=== PATIENT | male | born 1955 | race African-American/Black ===

== ENCOUNTER 2018-06-01 09:40 | Observation (INO) | payer BC, MEDICAID ==
[2018-06-01] MEDS: SODIUM CHLORIDE 0.9% 1L BAG IV* (10:27)
[2018-06-01 10:48] LABS: ADD MAN DIFF? NO
[2018-06-01 10:51] LABS: WHITE BLOOD COUNT 7.6 10^3/ul (4.8-10.8)
[2018-06-01 10:51] LABS: BASOPHIL # 0.1 10^3/ul (0.0-0.1); BASOPHILS % 0.7 % (0.0-2.0); EOSINOPHILS # 0.1 10^3/ul (0.0-0.5); EOSINOPHILS % 1.7 % (0.0-7.0); HEMATOCRIT 42.4 % (42.0-52.0); HEMOGLOBIN 14.2 g/dl (14.0-18.0); LYMPHOCYTES # 2.6 10^3/ul (0.8-2.9); LYMPHOCYTES % 33.9 % (15.0-51.0); MEAN CORPUSCULAR HEMOGLOBIN 28.1 pg (29.0-33.0); MEAN CORPUSCULAR HGB CONC 33.5 g/dl (32.0-37.0); MEAN CORPUSCULAR VOLUME 83.8 fl (82.0-101.0); MEAN PLATELET VOLUME 12.2 fl (7.4-10.4); MONOCYTE # 0.6 10^3/ul (0.3-0.9); MONOCYTES % 7.8 % (0.0-11.0); NEUTROPHIL # 4.2 10^3/ul (1.6-7.5); NEUTROPHILS % 55.5 % (39.0-77.0); PLATELET COUNT 189 10^3/UL (140-415); RED BLOOD COUNT 5.06 10^6/ul (4.70-6.10)
[2018-06-01] MEDS: morphine 4 MG/ML VIAL IV (11:07)
[2018-06-01] MEDS: ONDANSETRON 4 MG INJ IV ×2 (11:07→12:21)
[2018-06-01] MEDS: SOD CHLORIDE 0.9% 1,000 ML IV ×2 (11:07→11:10)
[2018-06-01 11:08] LABS: ALANINE AMINOTRANSFERASE 29 IU/L (13-69); ALBUMIN 4.5 g/dl (3.3-4.9); ALKALINE PHOSPHATASE 62 IU/L (42-121); AMYLASE 85 U/L (11-123); ANION GAP 12 (8-16); ASPARTATE AMINO TRANSFERASE 43 IU/L (15-46); BILIRUBIN,INDIRECT 0.8 mg/dl (0-1.1); BILIRUBIN,TOTAL 0.8 mg/dl (0.2-1.3); BLOOD UREA NITROGEN 12 mg/dl (7-20); CALCIUM 9.5 mg/dl (8.4-10.2); CARBON DIOXIDE 26 mmol/L (21-31); CHLORIDE 106 mmol/L (97-110); CREATININE 0.96 mg/dl (0.61-1.24); GLUCOSE 104 mg/dl (70-220); LIPASE 35 U/L (23-300); POTASSIUM 3.7 mmol/L (3.5-5.1); SODIUM 140 mmol/L (135-144); TOTAL PROTEIN 7.7 g/dl (6.1-8.1)
[2018-06-01 11:20] LABS: TROPONIN-I 0.032 ng/ml (0.000-0.120)
[2018-06-01 11:40] LABS: INR 1.03; PROTIME 13.6 Sec (11.9-14.9); PT RATIO 1.1
[2018-06-01 11:41] LABS: PARTIAL THROMBOPLASTIN TIME 27.9 Sec (25.0-35.0)
[2018-06-01] MEDS ORDERED: NITROGLYCERIN (SL) 0.4 MG TAB SL (12:00)
[2018-06-01] MEDS: ASPIRIN 325 MG TAB PO (12:19)
[2018-06-01] MEDS: HYDROmorphONE 1 MG/ML SYG IV (12:22)
[2018-06-01] MEDS: IODIXANOL LOCM 100 ML BTL (13:19)
[2018-06-01] MEDS: SOD CHLORIDE 0.9% 100 ML (13:19)
[2018-06-01] MEDS ORDERED: ACETAMINOPHEN 325 MG TAB PO (13:30)
[2018-06-01] MEDS ORDERED: ONDANSETRON 4 MG INJ IV (13:30)
[2018-06-01] MEDS ORDERED: GLUCOSE GEL 15 GRAM TUBE BUCCAL (13:30)
[2018-06-01] MEDS ORDERED: NACL 0.9% 3 ML SYG IV (13:30)
[2018-06-01] MEDS ORDERED: GLUCAGON 1 MG INJ IM (13:30)
[2018-06-01] MEDS ORDERED: GLUCOSE GEL 15 GRAM TUBE PO ×2 (13:30)
[2018-06-01] MEDS ORDERED: DEXTROSE 50% 50 ML SYRINGE IV ×2 (13:30)
[2018-06-01 14:04] LABS: HEMOGLOBIN A1C 6.2 % (0-5.9)
[2018-06-01 14:21] LABS: CREATINE KINASE 439 IU/L (23-200)
[2018-06-01 14:44] LABS: HDL CHOLESTEROL 39 mg/dl (30-78); LDL CHOLESTEROL,CALCULATED 93 mg/dl; TRIGLYCERIDES 137 mg/dl (0-149)
[2018-06-01 14:44] LABS: CHOLESTEROL 159 mg/dl (100-200)
[2018-06-01] MEDS: HYDROCHLOROTHIAZIDE 25 MG TAB PO (17:16)
[2018-06-01] MEDS: LISINOPRIL 20 MG TAB PO (17:16)
[2018-06-01] MEDS: metFORMIN 500 MG TAB PO (18:31)
[2018-06-01] MEDS: AMLODIPINE 5 MG TAB PO (18:57)
[2018-06-01 19:31] LABS: CREATINE KINASE 300 IU/L (23-200)
[2018-06-01 19:44] LABS: CK INDEX 0.9; CK-MB 2.69 ng/ml (0.0-2.4); TROPONIN-I 0.033 ng/ml (0.000-0.120)
[2018-06-01] MEDS: HYDROCODONE/APAP (5/325) TAB PO (21:00)
[2018-06-02] MEDS: HYDROCODONE/APAP (5/325) TAB PO ×2 (02:49→08:45)
[2018-06-02] MEDS ORDERED: VANCOMYCIN IV PER PHARMACY XX (05:30)
[2018-06-02 06:24] LABS: ADD MAN DIFF? NO
[2018-06-02 06:41] LABS: BASOPHIL # 0.1 10^3/ul (0.0-0.1); BASOPHILS % 0.7 % (0.0-2.0); EOSINOPHILS # 0.1 10^3/ul (0.0-0.5); EOSINOPHILS % 1.1 % (0.0-7.0); HEMATOCRIT 45.7 % (42.0-52.0); HEMOGLOBIN 15.1 g/dl (14.0-18.0); LYMPHOCYTES # 2.3 10^3/ul (0.8-2.9); LYMPHOCYTES % 25.5 % (15.0-51.0); MEAN CORPUSCULAR HEMOGLOBIN 27.9 pg (29.0-33.0); MEAN CORPUSCULAR VOLUME 84.5 fl (82.0-101.0); MEAN PLATELET VOLUME 11.9 fl (7.4-10.4); MONOCYTE # 0.8 10^3/ul (0.3-0.9); NEUTROPHIL # 5.8 10^3/ul (1.6-7.5); NEUTROPHILS % 63.3 % (39.0-77.0); PLATELET COUNT 175 10^3/UL (140-415); RED BLOOD COUNT 5.41 10^6/ul (4.70-6.10); RED CELL DISTRIBUTION WIDTH 12.8 % (11.5-14.5)
[2018-06-02 06:41] LABS: WHITE BLOOD COUNT 9.1 10^3/ul (4.8-10.8)
[2018-06-02 06:54] LABS: ALANINE AMINOTRANSFERASE 33 IU/L (13-69); ALBUMIN 4.5 g/dl (3.3-4.9); ALBUMIN/GLOBULIN RATIO 1.36; ALKALINE PHOSPHATASE 62 IU/L (42-121); ANION GAP 12 (8-16); ASPARTATE AMINO TRANSFERASE 32 IU/L (15-46); BLOOD UREA NITROGEN 13 mg/dl (7-20); CALCIUM 9.7 mg/dl (8.4-10.2); CARBON DIOXIDE 32 mmol/L (21-31); CHLORIDE 100 mmol/L (97-110); CREATININE 1.06 mg/dl (0.61-1.24); GLUCOSE 123 mg/dl (70-220); POTASSIUM 3.5 mmol/L (3.5-5.1); SODIUM 140 mmol/L (135-144); TOTAL PROTEIN 7.8 g/dl (6.1-8.1)
[2018-06-02] MEDS: VANCOMYCIN 2 GM in SOD CHLORIDE 0.9% 500 ML IVPB (07:06)
[2018-06-02] MEDS: metFORMIN 500 MG TAB PO ×2 (08:44→17:54)
[2018-06-02] MEDS: HYDROCHLOROTHIAZIDE 25 MG TAB PO (08:45)
[2018-06-02] MEDS: LISINOPRIL 20 MG TAB PO (08:45)
[2018-06-02] MEDS: AMLODIPINE 5 MG TAB PO (08:45)
[2018-06-02] MEDS: ENOXAPARIN 30 MG/0.3 ML SYG SC (08:51)
[2018-06-02] MEDS: ASPIRIN 81 MG TAB PO (15:44)
[2018-06-02] MEDS ORDERED: VANCOMYCIN 1.5 GM in SOD CHLORIDE 0.9% 250 ML IVPB (18:30)
[2018-06-02] MEDS: ATORVASTATIN 40 MG TAB PO (20:29)
[2018-06-02] MEDS: VANCOMYCIN 1 GM 250 ML IVPB (20:33)
[2018-06-03] MEDS: metFORMIN 500 MG TAB PO ×2 (08:47→17:08)
[2018-06-03] MEDS: ASPIRIN 81 MG TAB PO (08:50)
[2018-06-03] MEDS: AMLODIPINE 5 MG TAB PO (08:51)
[2018-06-03] MEDS: HYDROCHLOROTHIAZIDE 25 MG TAB PO (08:51)
[2018-06-03] MEDS: LISINOPRIL 20 MG TAB PO (08:54)
[2018-06-03] MEDS: VANCOMYCIN 1 GM 250 ML IVPB (08:55)
[2018-06-03] MEDS: ENOXAPARIN 30 MG/0.3 ML SYG SC (10:00)
== END 2018-06-03 19:00 | disposition home or self-care (01) ==
LOC: 6WM 17:46 → E/R 09:40 → 6WM 13:05
PROVIDERS: Internal Medicine
DX: R07.9 Chest pain, unspecified (principal); I10 Essential (primary) hypertension; E11.9 Type 2 diabetes mellitus without complications; R51 Headache; Z72.0 Tobacco use
CPT/HCPCS: 70450; 70496; 71045; 80053; 80061; 82150; 82550; 82553; 82962; 83036; 83605; 83690; 84484; 85025; 85610; 85730; 87040; 87086; 93005; 93306; 96374; 96375; 96376; 99285-25; G0378

== ENCOUNTER 2018-07-12 11:42 | Inpatient (IN) | payer BC, MEDICAID ==
[2018-07-12] MEDS: PANTOPRAZOLE 40 MG INJ IV (12:41)
[2018-07-12] MEDS: morphine 4 MG/ML VIAL IV (12:42)
[2018-07-12] MEDS: ONDANSETRON 4 MG INJ IV (12:42)
[2018-07-12 12:55] LABS: ADD MAN DIFF? NO
[2018-07-12 12:59] LABS: WHITE BLOOD COUNT 7.5 10^3/ul (4.8-10.8)
[2018-07-12 12:59] LABS: BASOPHILS % 0.5 % (0.0-2.0); EOSINOPHILS # 0.3 10^3/ul (0.0-0.5); EOSINOPHILS % 3.6 % (0.0-7.0); HEMATOCRIT 38.8 % (42.0-52.0); HEMOGLOBIN 12.8 g/dl (14.0-18.0); LYMPHOCYTES # 2.2 10^3/ul (0.8-2.9); MEAN CORPUSCULAR HEMOGLOBIN 27.9 pg (29.0-33.0); MEAN CORPUSCULAR VOLUME 84.7 fl (82.0-101.0); MEAN PLATELET VOLUME 11.9 fl (7.4-10.4); MONOCYTE # 0.5 10^3/ul (0.3-0.9); MONOCYTES % 6.4 % (0.0-11.0); NEUTROPHIL # 4.5 10^3/ul (1.6-7.5); PLATELET COUNT 141 10^3/UL (140-415); RED BLOOD COUNT 4.58 10^6/ul (4.70-6.10); RED CELL DISTRIBUTION WIDTH 13.2 % (11.5-14.5)
[2018-07-12 13:16] LABS: ALANINE AMINOTRANSFERASE 41 IU/L (13-69); ALBUMIN/GLOBULIN RATIO 1.48; ALKALINE PHOSPHATASE 69 IU/L (42-121); ANION GAP 10 (8-16); ASPARTATE AMINO TRANSFERASE 36 IU/L (15-46); BILIRUBIN,INDIRECT 0.3 mg/dl (0-1.1); BILIRUBIN,TOTAL 0.3 mg/dl (0.2-1.3); BLOOD UREA NITROGEN 19 mg/dl (7-20); CALCIUM 9.4 mg/dl (8.4-10.2); CARBON DIOXIDE 28 mmol/L (21-31); CHLORIDE 106 mmol/L (97-110); CREATININE 0.92 mg/dl (0.61-1.24); GLUCOSE 174 mg/dl (70-220); POTASSIUM 4.2 mmol/L (3.5-5.1); SODIUM 140 mmol/L (135-144); TOTAL PROTEIN 6.7 g/dl (6.1-8.1)
[2018-07-12 13:18] LABS: PROTIME 13.3 Sec (11.9-14.9)
[2018-07-12 13:19] LABS: PARTIAL THROMBOPLASTIN TIME 27.7 Sec (25.0-35.0)
[2018-07-12 13:28] LABS: TROPONIN-I < 0.012 ng/ml (0.000-0.120)
[2018-07-12] MEDS ORDERED: ACETAMINOPHEN 325 MG TAB PO ×2 (14:30→15:00)
[2018-07-12] MEDS ORDERED: ONDANSETRON 4 MG INJ IV ×2 (14:30→15:00)
[2018-07-12] MEDS ORDERED: HYDROCODONE/APAP (5/325) TAB PO (15:00)
[2018-07-12] MEDS ORDERED: ZOLPIDEM 5 MG TAB PO (15:00)
[2018-07-12] MEDS ORDERED: morphine 2 MG INJ IV (15:00)
[2018-07-12 15:26] LABS: PROSTATE SPECIFIC ANTIGEN 3.7 ng/ml (0.0-4.0)
[2018-07-12] MEDS ORDERED: DEXTROSE 50% 50 ML SYRINGE IV ×2 (15:30)
[2018-07-12] MEDS ORDERED: GLUCOSE GEL 15 GRAM TUBE BUCCAL (15:30)
[2018-07-12] MEDS ORDERED: GLUCAGON 1 MG INJ IM (15:30)
[2018-07-12] MEDS ORDERED: GLUCOSE GEL 15 GRAM TUBE PO ×2 (15:30)
[2018-07-12] MEDS: DOCUSATE SODIUM 100 MG CAP PO ×2 (16:15→20:45)
[2018-07-12] MEDS: BISACODYL (EC) 5 MG TAB PO (16:15)
[2018-07-12] MEDS: SOD CHLORIDE 0.9% 1,000 ML IV (16:16)
[2018-07-12] MEDS: INSULIN ASPART [NOVOLOG] 3 ML PEN SC ×2 (18:00→20:45)
[2018-07-12] MEDS: MAGNESIUM CITRATE 300 ML BTL PO (18:04)
[2018-07-12] MEDS: POLYETHYLENE GLYCOL 3350 119 GM POWDER PO (18:24)
[2018-07-12] MEDS: ACCU-CHEK XX (20:08)
[2018-07-12] MEDS: ATORVASTATIN 40 MG TAB PO (20:45)
[2018-07-13] MEDS: ACCU-CHEK XX ×3 (01:03→14:00)
[2018-07-13] MEDS: SOD CHLORIDE 0.9% 1,000 ML IV ×2 (03:33→16:22)
[2018-07-13] MEDS: PANTOPRAZOLE 40 MG INJ IV (05:27)
[2018-07-13] MEDS: POLYETHYLENE GLYCOL 3350 119 GM POWDER PO (06:02)
[2018-07-13] MEDS ORDERED: PROPOFOL 200 MG INJ (07:00)
[2018-07-13 07:05] LABS: ADD MAN DIFF? NO
[2018-07-13 07:14] LABS: BASOPHIL # 0.1 10^3/ul (0.0-0.1); BASOPHILS % 0.7 % (0.0-2.0); EOSINOPHILS # 0.3 10^3/ul (0.0-0.5); EOSINOPHILS % 3.6 % (0.0-7.0); HEMATOCRIT 38.9 % (42.0-52.0); HEMOGLOBIN 12.8 g/dl (14.0-18.0); LYMPHOCYTES # 2.3 10^3/ul (0.8-2.9); LYMPHOCYTES % 32.2 % (15.0-51.0); MEAN CORPUSCULAR HEMOGLOBIN 28.1 pg (29.0-33.0); MEAN CORPUSCULAR HGB CONC 32.9 g/dl (32.0-37.0); MEAN CORPUSCULAR VOLUME 85.5 fl (82.0-101.0); MEAN PLATELET VOLUME 12.4 fl (7.4-10.4); MONOCYTE # 0.5 10^3/ul (0.3-0.9); MONOCYTES % 7.5 % (0.0-11.0); NEUTROPHILS % 55.6 % (39.0-77.0); PLATELET COUNT 145 10^3/UL (140-415); RED BLOOD COUNT 4.55 10^6/ul (4.70-6.10); RED CELL DISTRIBUTION WIDTH 13.2 % (11.5-14.5)
[2018-07-13 07:14] LABS: WHITE BLOOD COUNT 7.2 10^3/ul (4.8-10.8)
[2018-07-13 07:50] LABS: ANION GAP 10 (8-16); BLOOD UREA NITROGEN 15 mg/dl (7-20); CALCIUM 9.2 mg/dl (8.4-10.2); CARBON DIOXIDE 30 mmol/L (21-31); CHLORIDE 105 mmol/L (97-110); CREATININE 0.94 mg/dl (0.61-1.24); GLUCOSE 108 mg/dl (70-220); POTASSIUM 3.8 mmol/L (3.5-5.1); SODIUM 141 mmol/L (135-144)
[2018-07-13] MEDS: INSULIN ASPART [NOVOLOG] 3 ML PEN SC ×3 (08:00→17:52)
[2018-07-13] MEDS: BISACODYL (EC) 5 MG TAB PO (08:03)
[2018-07-13] MEDS: LISINOPRIL 20 MG TAB PO (08:04)
[2018-07-13] MEDS: DOCUSATE SODIUM 100 MG CAP PO (08:04)
[2018-07-13] MEDS: AMLODIPINE 5 MG TAB PO (08:04)
[2018-07-13 08:16] LABS: MAGNESIUM 2.2 mg/dl (1.7-2.5)
[2018-07-13] MEDS: TRIAMTERENE/HCTZ (37.5/25) TAB PO (09:00)
[2018-07-13] MEDS ORDERED: PROPOFOL 60 ML (12:59)
[2018-07-13] MEDS ORDERED: LIDOCAINE 2% (SDV) 5 ML INJ (13:00)
[2018-07-13] MEDS ORDERED: morphine LIQ (10 MG/5 ML) CUP PO (18:30)
[2018-07-14] MEDS ORDERED: ACCU-CHEK XX (02:00)
== END 2018-07-13 20:25 | disposition home or self-care (01) | DRG 395 ==
LOC: E/R 11:42 → 2NE 14:17
PROC: 0DJD8ZZ Inspection of Lower Intestinal Tract, Via Natural or Artificial Opening Endoscopic (ICD-10-PCS; principal; 2018-07-13 12:30)
DX: K64.8 Other hemorrhoids (principal); I10 Essential (primary) hypertension; E11.9 Type 2 diabetes mellitus without complications; Z88.0 Allergy status to penicillin; Z87.891 Personal history of nicotine dependence; D64.9 Anemia, unspecified; M51.36 Other intervertebral disc degeneration, lumbar region; G89.29 Other chronic pain; E78.5 Hyperlipidemia, unspecified; N40.0 Benign prostatic hyperplasia without lower urinary tract symptoms; E66.9 Obesity, unspecified; Z68.34 Body mass index [BMI] 34.0-34.9, adult
CPT/HCPCS: 74176; 80048; 80053; 82962; 83735; 84100; 84153; 84154; 84484; 85025; 85610; 85730; 86850; 86900; 86901; 93005; 96374; 96375; 99285-25

== ENCOUNTER 2019-03-13 23:30 | Inpatient (IN) | payer MEDICAID, BC, OTHER ==
[2019-03-14] MEDS: SOD CHLORIDE 0.9% 500 ML IV (00:25)
[2019-03-14 00:52] LABS: ADD MAN DIFF? NO
[2019-03-14 00:59] LABS: WHITE BLOOD COUNT 10.3 10^3/ul (4.8-10.8)
[2019-03-14 00:59] LABS: BASOPHIL # 0.1 10^3/ul (0.0-0.1); BASOPHILS % 0.5 % (0.0-2.0); EOSINOPHILS # 0.2 10^3/ul (0.0-0.5); EOSINOPHILS % 1.5 % (0.0-7.0); HEMOGLOBIN 12.8 g/dl (14.0-18.0); LYMPHOCYTES # 2.6 10^3/ul (0.8-2.9); MEAN CORPUSCULAR HEMOGLOBIN 27.8 pg (29.0-33.0); MEAN CORPUSCULAR HGB CONC 32.8 g/dl (32.0-37.0); MEAN CORPUSCULAR VOLUME 84.8 fl (82.0-101.0); MEAN PLATELET VOLUME 12.5 fl (7.4-10.4); NEUTROPHIL # 6.4 10^3/ul (1.6-7.5); NEUTROPHILS % 62.5 % (39.0-77.0); PLATELET COUNT 132 10^3/UL (140-415); RED CELL DISTRIBUTION WIDTH 13.5 % (11.5-14.5)
[2019-03-14 01:18] LABS: INR 1.06; PROTIME 13.9 Sec (11.9-14.9); PT RATIO 1.1
[2019-03-14 01:19] LABS: PARTIAL THROMBOPLASTIN TIME 28.4 Sec (23.0-35.0)
[2019-03-14 01:22] LABS: ALANINE AMINOTRANSFERASE 34 IU/L (13-69); ALBUMIN 3.9 g/dl (3.3-4.9); ALBUMIN/GLOBULIN RATIO 1.44; ALKALINE PHOSPHATASE 63 IU/L (42-121); ANION GAP 7 (5-13); ASPARTATE AMINO TRANSFERASE 34 IU/L (15-46); BILIRUBIN,INDIRECT 0.7 mg/dl (0-1.1); BILIRUBIN,TOTAL 0.7 mg/dl (0.2-1.3); BLOOD UREA NITROGEN 21 mg/dl (7-20); CALCIUM 9.1 mg/dl (8.4-10.2); CARBON DIOXIDE 28 mmol/L (21-31); CHLORIDE 103 mmol/L (97-110); CREATININE 1.04 mg/dl (0.61-1.24); Estimated GFR > 60 mL/min (>60); GLUCOSE 163 mg/dl (70-220); POTASSIUM 3.5 mmol/L (3.5-5.1); SODIUM 138 mmol/L (135-144); TOTAL PROTEIN 6.6 g/dl (6.1-8.1)
[2019-03-14 01:32] LABS: B-TYPE NATRIURETIC PEPTIDE 355 PG/ML (0-125)
[2019-03-14 01:40] LABS: TROPONIN-I 0.037 ng/ml (0.000-0.120)
[2019-03-14] MEDS: ALBUTEROL 0.083% (NEB) 2.5 MG/3 ML AMP NEB (01:47)
[2019-03-14] MEDS: IPRATROPIUM (NEB) 0.5 MG/2.5 ML AMP NEB (01:47)
[2019-03-14 01:48] LABS: ADD UMIC YES; UR ASCORBIC ACID NEGATIVE (NEGATIVE); UR BACTERIA FEW /HPF (NONE SEEN); UR BILIRUBIN (Dip) NEGATIVE (NEGATIVE); UR BLOOD (Dip) 1+ mg/dL (NEGATIVE); UR CLARITY CLEAR (CLEAR); UR COLOR YELLOW (YELLOW); UR GLUCOSE (Dip) 1+ mg/dL (NEGATIVE); UR KETONES (Dip) NEGATIVE (NEGATIVE); UR LEUKOCYTE ESTERASE (Dip) NEGATIVE Leu/ul (NEGATIVE); UR NITRITE (Dip) NEGATIVE (NEGATIVE); UR RBC 1 /HPF (0-5); UR SPECIFIC GRAVITY (Dip) 1.015 (1.003-1.030); UR TOTAL PROTEIN (Dip) NEGATIVE (NEGATIVE); UR UROBILINOGEN (Dip) NEGATIVE (NEGATIVE); UR WBC 1 /HPF (0-5)
[2019-03-14] MEDS: KETOROLAC 15 MG INJ IV (01:52)
[2019-03-14] MEDS ORDERED: ONDANSETRON 4 MG INJ IV (06:00)
[2019-03-14] MEDS ORDERED: ALBUTEROL/IPRATROPIUM (NEB) 3 ML AMP HHN (06:00)
[2019-03-14] MEDS ORDERED: NACL 0.9% 3 ML SYG IV (06:00)
[2019-03-14] MEDS ORDERED: NITROGLYCERIN (SL) 0.4 MG TAB SL (06:00)
[2019-03-14 06:15] LABS: LACTIC ACID 1.1 mmol/L (0.5-2.0)
[2019-03-14] MEDS ORDERED: GLUCOSE GEL 15 GRAM TUBE BUCCAL (06:30)
[2019-03-14] MEDS ORDERED: DEXTROSE 50% 50 ML SYRINGE IV ×2 (06:30)
[2019-03-14] MEDS ORDERED: GLUCAGON 1 MG INJ IM (06:30)
[2019-03-14] MEDS ORDERED: GLUCOSE GEL 15 GRAM TUBE PO ×2 (06:30)
[2019-03-14] MEDS: ACCU-CHEK XX ×4 (07:57→21:00)
[2019-03-14] MEDS: metFORMIN 500 MG TAB PO ×2 (07:58→17:15)
[2019-03-14 08:02] LABS: LACTIC ACID 1.5 mmol/L (0.5-2.0)
[2019-03-14 08:11] LABS: CREATINE KINASE 334 IU/L (23-200)
[2019-03-14] MEDS: TRIAMTERENE/HCTZ (37.5/25) TAB PO (08:12)
[2019-03-14] MEDS: ASPIRIN 81 MG TAB PO (08:12)
[2019-03-14] MEDS: AMLODIPINE 5 MG TAB PO (08:12)
[2019-03-14] MEDS: LISINOPRIL 20 MG TAB PO (08:13)
[2019-03-14] MEDS: POLYETHYLENE GLYCOL 17 GM PACKET PO (08:13)
[2019-03-14] MEDS: ENOXAPARIN 40 MG/0.4 ML SYG SC (08:18)
[2019-03-14 08:23] LABS: CK INDEX 0.8; TROPONIN-I 0.054 ng/ml (0.000-0.120)
[2019-03-14 09:10] LABS: HAAIG REFLEX REFLEX FILED
[2019-03-14 10:09] LABS: HEPATITIS B SURFACE ANTIGEN NEGATIVE (NEGATIVE)
[2019-03-14 10:26] LABS: HEPATITIS B CORE ANTIBODY REACTIVE (NEGATIVE); HEPATITIS C VIRAL ANTIBODY NEGATIVE (NEGATIVE); HIV 1&2 ANTIBODY NEGATIVE (NEGATIVE)
[2019-03-14] MEDS: ACETAMINOPHEN 325 MG TAB PO ×2 (12:35→20:07)
[2019-03-14 13:40] LABS: CREATINE KINASE 349 IU/L (23-200)
[2019-03-14 13:49] LABS: TROPONIN-I 0.046 ng/ml (0.000-0.120)
[2019-03-14 13:54] LABS: CK-MB 3.38 ng/ml (0.0-2.4)
[2019-03-14] MEDS: hydrALAzine 20 MG INJ IV (15:56)
[2019-03-14 16:38] LABS: LIPASE 75 U/L (23-300)
[2019-03-14] MEDS: TAMSULOSIN (SR) 0.4 MG CAP PO (21:00)
[2019-03-14] MEDS: ATORVASTATIN 40 MG TAB PO (21:00)
[2019-03-14] MEDS: MAGNESIUM HYDROXIDE 30ML CUP PO (21:00)
[2019-03-15] MEDS: ACETAMINOPHEN 325 MG TAB PO ×3 (04:15→22:27)
[2019-03-15] MEDS: PANTOPRAZOLE (EC) 40 MG TAB PO (05:56)
[2019-03-15 06:14] LABS: ADD MAN DIFF? NO
[2019-03-15 06:19] LABS: WHITE BLOOD COUNT 9.6 10^3/ul (4.8-10.8)
[2019-03-15 06:19] LABS: BASOPHIL # 0.1 10^3/ul (0.0-0.1); BASOPHILS % 0.6 % (0.0-2.0); EOSINOPHILS # 0.2 10^3/ul (0.0-0.5); EOSINOPHILS % 2.2 % (0.0-7.0); HEMATOCRIT 42.7 % (42.0-52.0); HEMOGLOBIN 14.3 g/dl (14.0-18.0); LYMPHOCYTES # 2.7 10^3/ul (0.8-2.9); LYMPHOCYTES % 27.8 % (15.0-51.0); MEAN CORPUSCULAR HEMOGLOBIN 27.9 pg (29.0-33.0); MEAN CORPUSCULAR HGB CONC 33.5 g/dl (32.0-37.0); MEAN CORPUSCULAR VOLUME 83.2 fl (82.0-101.0); MEAN PLATELET VOLUME 12.6 fl (7.4-10.4); MONOCYTE # 0.7 10^3/ul (0.3-0.9); MONOCYTES % 7.3 % (0.0-11.0); NEUTROPHIL # 5.9 10^3/ul (1.6-7.5); NEUTROPHILS % 61.7 % (39.0-77.0); PLATELET COUNT 148 10^3/UL (140-415); RED BLOOD COUNT 5.13 10^6/ul (4.70-6.10); RED CELL DISTRIBUTION WIDTH 13.1 % (11.5-14.5)
[2019-03-15 06:55] LABS: ANION GAP 9 (5-13); BLOOD UREA NITROGEN 15 mg/dl (7-20); CALCIUM 9.6 mg/dl (8.4-10.2); CARBON DIOXIDE 25 mmol/L (21-31); CHLORIDE 105 mmol/L (97-110); CREATININE 0.88 mg/dl (0.61-1.24); Estimated GFR > 60 mL/min (>60); GLUCOSE 193 mg/dl (70-220); PHOSPHORUS 3.5 mg/dl (2.5-4.9); POTASSIUM 3.8 mmol/L (3.5-5.1); SODIUM 139 mmol/L (135-144)
[2019-03-15 07:07] LABS: ALANINE AMINOTRANSFERASE 39 IU/L (13-69); ALBUMIN 4.1 g/dl (3.3-4.9); ALBUMIN/GLOBULIN RATIO 1.36; ALKALINE PHOSPHATASE 58 IU/L (42-121); ANION GAP 8 (5-13); ASPARTATE AMINO TRANSFERASE 34 IU/L (15-46); BLOOD UREA NITROGEN 15 mg/dl (7-20); CALCIUM 9.8 mg/dl (8.4-10.2); CARBON DIOXIDE 24 mmol/L (21-31); CHLORIDE 105 mmol/L (97-110); CHOLESTEROL 108 mg/dl (100-200); CREATININE 1.03 mg/dl (0.61-1.24); Estimated GFR > 60 mL/min (>60); GLUCOSE 201 mg/dl (70-220); HDL CHOLESTEROL 36 mg/dl (30-78); LDL CHOLESTEROL,CALCULATED 47 mg/dl; MAGNESIUM 2.1 mg/dl (1.7-2.5); POTASSIUM 3.6 mmol/L (3.5-5.1); SODIUM 137 mmol/L (135-144); TOTAL PROTEIN 7.1 g/dl (6.1-8.1); TRIGLYCERIDES 123 mg/dl (0-149)
[2019-03-15] MEDS: ACCU-CHEK XX ×4 (07:54→20:52)
[2019-03-15] MEDS: TRIAMTERENE/HCTZ (37.5/25) TAB PO (08:08)
[2019-03-15] MEDS: metFORMIN 500 MG TAB PO ×2 (08:08→17:51)
[2019-03-15] MEDS: POLYETHYLENE GLYCOL 17 GM PACKET PO (08:09)
[2019-03-15] MEDS: LISINOPRIL 20 MG TAB PO (08:09)
[2019-03-15] MEDS: AMLODIPINE 5 MG TAB PO (08:09)
[2019-03-15] MEDS: TAMSULOSIN (SR) 0.4 MG CAP PO (20:51)
[2019-03-15] MEDS: ATORVASTATIN 40 MG TAB PO (20:51)
[2019-03-15] MEDS: METOPROLOL 25 MG TAB PO (20:52)
[2019-03-16 05:38] LABS: ADD MAN DIFF? NO
[2019-03-16 05:44] LABS: WHITE BLOOD COUNT 10.6 10^3/ul (4.8-10.8)
[2019-03-16 05:44] LABS: BASOPHIL # 0.1 10^3/ul (0.0-0.1); BASOPHILS % 0.7 % (0.0-2.0); EOSINOPHILS # 0.3 10^3/ul (0.0-0.5); EOSINOPHILS % 2.6 % (0.0-7.0); HEMATOCRIT 43.1 % (42.0-52.0); HEMOGLOBIN 14.4 g/dl (14.0-18.0); LYMPHOCYTES # 2.9 10^3/ul (0.8-2.9); MEAN CORPUSCULAR HEMOGLOBIN 27.5 pg (29.0-33.0); MEAN CORPUSCULAR HGB CONC 33.4 g/dl (32.0-37.0); MEAN CORPUSCULAR VOLUME 82.3 fl (82.0-101.0); MEAN PLATELET VOLUME 12.7 fl (7.4-10.4); MONOCYTE # 0.8 10^3/ul (0.3-0.9); MONOCYTES % 7.9 % (0.0-11.0); NEUTROPHIL # 6.5 10^3/ul (1.6-7.5); NEUTROPHILS % 61.3 % (39.0-77.0); PLATELET COUNT 162 10^3/UL (140-415); RED BLOOD COUNT 5.24 10^6/ul (4.70-6.10); RED CELL DISTRIBUTION WIDTH 13.5 % (11.5-14.5)
[2019-03-16 06:15] LABS: ANION GAP 9 (5-13); BLOOD UREA NITROGEN 16 mg/dl (7-20); CALCIUM 9.4 mg/dl (8.4-10.2); CARBON DIOXIDE 26 mmol/L (21-31); CHLORIDE 103 mmol/L (97-110); CREATININE 0.96 mg/dl (0.61-1.24); Estimated GFR > 60 mL/min (>60); GLUCOSE 134 mg/dl (70-220); MAGNESIUM 2.1 mg/dl (1.7-2.5); PHOSPHORUS 3.9 mg/dl (2.5-4.9); POTASSIUM 3.8 mmol/L (3.5-5.1); SODIUM 138 mmol/L (135-144)
[2019-03-16] MEDS: PANTOPRAZOLE (EC) 40 MG TAB PO (06:21)
[2019-03-16] MEDS: ACCU-CHEK XX ×4 (07:55→21:50)
[2019-03-16] MEDS: metFORMIN 500 MG TAB PO ×2 (08:15→17:56)
[2019-03-16] MEDS: ACETAMINOPHEN 325 MG TAB PO ×2 (08:37→18:30)
[2019-03-16] MEDS: LISINOPRIL 20 MG TAB PO (08:38)
[2019-03-16] MEDS: AMLODIPINE 5 MG TAB PO (08:39)
[2019-03-16] MEDS: METOPROLOL 25 MG TAB PO ×2 (08:39→21:47)
[2019-03-16] MEDS: POLYETHYLENE GLYCOL 17 GM PACKET PO (09:37)
[2019-03-16] MEDS: TRIAMTERENE/HCTZ (37.5/25) TAB PO (09:37)
[2019-03-16] MEDS: REGADENOSON 0.4 MG/5 ML SYG (11:10)
[2019-03-16] MEDS ORDERED: VANCOMYCIN IV PER PHARMACY XX (11:30)
[2019-03-16] MEDS: VANCOMYCIN HCL 2 GM in SOD CHLORIDE 0.9% 500 ML IVPB (13:45)
[2019-03-16] MEDS: TAMSULOSIN (SR) 0.4 MG CAP PO (21:46)
[2019-03-16] MEDS: ATORVASTATIN 40 MG TAB PO (21:46)
[2019-03-16] MEDS: VANCOMYCIN HCL 1.25 GM in SOD CHLORIDE 0.9% 250 ML IVPB (23:55)
[2019-03-17 06:07] LABS: ADD MAN DIFF? NO
[2019-03-17 06:10] LABS: BASOPHIL # 0.1 10^3/ul (0.0-0.1); BASOPHILS % 0.6 % (0.0-2.0); EOSINOPHILS # 0.3 10^3/ul (0.0-0.5); EOSINOPHILS % 3.1 % (0.0-7.0); HEMATOCRIT 43.7 % (42.0-52.0); HEMOGLOBIN 14.4 g/dl (14.0-18.0); LYMPHOCYTES # 3.1 10^3/ul (0.8-2.9); LYMPHOCYTES % 30.7 % (15.0-51.0); MEAN CORPUSCULAR HEMOGLOBIN 27.3 pg (29.0-33.0); MEAN CORPUSCULAR VOLUME 82.9 fl (82.0-101.0); MEAN PLATELET VOLUME 12.4 fl (7.4-10.4); MONOCYTE # 0.7 10^3/ul (0.3-0.9); MONOCYTES % 7.4 % (0.0-11.0); NEUTROPHIL # 5.8 10^3/ul (1.6-7.5); NEUTROPHILS % 57.8 % (39.0-77.0); PLATELET COUNT 173 10^3/UL (140-415); RED BLOOD COUNT 5.27 10^6/ul (4.70-6.10); RED CELL DISTRIBUTION WIDTH 13.7 % (11.5-14.5)
[2019-03-17] MEDS: PANTOPRAZOLE (EC) 40 MG TAB PO (06:13)
[2019-03-17 06:37] LABS: ANION GAP 8 (5-13); BLOOD UREA NITROGEN 18 mg/dl (7-20); CALCIUM 9.2 mg/dl (8.4-10.2); CARBON DIOXIDE 26 mmol/L (21-31); CHLORIDE 106 mmol/L (97-110); CREATININE 0.92 mg/dl (0.61-1.24); Estimated GFR > 60 mL/min (>60); GLUCOSE 124 mg/dl (70-220); MAGNESIUM 2.1 mg/dl (1.7-2.5); PHOSPHORUS 3.5 mg/dl (2.5-4.9); SODIUM 140 mmol/L (135-144)
[2019-03-17] MEDS: ACCU-CHEK XX ×4 (07:32→20:56)
[2019-03-17] MEDS: metFORMIN 500 MG TAB PO ×2 (07:36→17:22)
[2019-03-17] MEDS: TRIAMTERENE/HCTZ (37.5/25) TAB PO (08:48)
[2019-03-17] MEDS: LISINOPRIL 20 MG TAB PO (08:49)
[2019-03-17] MEDS: AMLODIPINE 5 MG TAB PO (08:49)
[2019-03-17] MEDS: METOPROLOL 25 MG TAB PO ×2 (08:49→20:53)
[2019-03-17] MEDS: POLYETHYLENE GLYCOL 17 GM PACKET PO (08:50)
[2019-03-17] MEDS: VANCOMYCIN HCL 1.25 GM in SOD CHLORIDE 0.9% 250 ML IVPB (11:58)
[2019-03-17] MEDS: ACETAMINOPHEN 325 MG TAB PO (18:23)
[2019-03-17] MEDS: TAMSULOSIN (SR) 0.4 MG CAP PO (20:52)
[2019-03-17] MEDS: ATORVASTATIN 40 MG TAB PO (20:52)
[2019-03-18 05:33] LABS: ADD MAN DIFF? NO
[2019-03-18 05:40] LABS: WHITE BLOOD COUNT 10.2 10^3/ul (4.8-10.8)
[2019-03-18 05:40] LABS: BASOPHIL # 0.1 10^3/ul (0.0-0.1); BASOPHILS % 0.8 % (0.0-2.0); EOSINOPHILS # 0.3 10^3/ul (0.0-0.5); EOSINOPHILS % 2.9 % (0.0-7.0); HEMATOCRIT 41.1 % (42.0-52.0); HEMOGLOBIN 13.5 g/dl (14.0-18.0); LYMPHOCYTES # 2.9 10^3/ul (0.8-2.9); LYMPHOCYTES % 28.6 % (15.0-51.0); MEAN CORPUSCULAR HEMOGLOBIN 27.6 pg (29.0-33.0); MEAN CORPUSCULAR HGB CONC 32.8 g/dl (32.0-37.0); MEAN PLATELET VOLUME 12.7 fl (7.4-10.4); MONOCYTE # 0.8 10^3/ul (0.3-0.9); MONOCYTES % 8.2 % (0.0-11.0); PLATELET COUNT 161 10^3/UL (140-415); RED BLOOD COUNT 4.89 10^6/ul (4.70-6.10); RED CELL DISTRIBUTION WIDTH 13.4 % (11.5-14.5)
[2019-03-18] MEDS: PANTOPRAZOLE (EC) 40 MG TAB PO (05:48)
[2019-03-18 06:50] LABS: ANION GAP 9 (5-13); BLOOD UREA NITROGEN 26 mg/dl (7-20); CALCIUM 9.3 mg/dl (8.4-10.2); CARBON DIOXIDE 27 mmol/L (21-31); CHLORIDE 103 mmol/L (97-110); CREATININE 1.08 mg/dl (0.61-1.24); Estimated GFR > 60 mL/min (>60); GLUCOSE 105 mg/dl (70-220); MAGNESIUM 2.1 mg/dl (1.7-2.5); PHOSPHORUS 4.2 mg/dl (2.5-4.9); POTASSIUM 3.8 mmol/L (3.5-5.1); SODIUM 139 mmol/L (135-144)
[2019-03-18] MEDS: ACCU-CHEK XX (07:20)
[2019-03-18] MEDS: metFORMIN 500 MG TAB PO (08:02)
[2019-03-18] MEDS: METOPROLOL 25 MG TAB PO (08:53)
[2019-03-18] MEDS: LISINOPRIL 20 MG TAB PO (08:53)
[2019-03-18] MEDS: AMLODIPINE 5 MG TAB PO (08:53)
[2019-03-18] MEDS: POLYETHYLENE GLYCOL 17 GM PACKET PO (08:54)
[2019-03-18] MEDS: TRIAMTERENE/HCTZ (37.5/25) TAB PO (10:35)
== END 2019-03-18 10:50 | disposition home or self-care (01) | DRG 313 ==
LOC: E/R 23:30 → MS1 03-17 23:36 → 6WM 03-14 04:39
PROC: C22G1ZZ Tomographic (Tomo) Nuclear Medicine Imaging of Myocardium using Technetium 99m (Tc-99m) (ICD-10-PCS; principal; 2019-03-16)
PROC: 4A02XM4 Measurement of Cardiac Total Activity, External Approach (ICD-10-PCS; 2019-03-16)
PROC: 3E033HZ Introduction of Radioactive Substance into Peripheral Vein, Percutaneous Approach (ICD-10-PCS; 2019-03-16)
DX: R07.89 Other chest pain (principal); K92.2 Gastrointestinal hemorrhage, unspecified; I45.2 Bifascicular block; E11.9 Type 2 diabetes mellitus without complications; E78.5 Hyperlipidemia, unspecified; N40.0 Benign prostatic hyperplasia without lower urinary tract symptoms; J06.9 Acute upper respiratory infection, unspecified; I10 Essential (primary) hypertension; E66.9 Obesity, unspecified; Z68.38 Body mass index [BMI] 38.0-38.9, adult; G89.29 Other chronic pain; K59.00 Constipation, unspecified; D64.9 Anemia, unspecified; Z87.891 Personal history of nicotine dependence
CPT/HCPCS: 36415; 70450; 71045; 78452; 80048; 80053; 80061; 81001; 82550; 82553; 82962; 83036; 83605; 83690; 83735; 83880; 84100; 84443; 84484; 85025; 85610; 85730; 86703; 86704; 86709; 86803; 87040-91; 87340; 87400; 93005; 93017; 93306; 94664; 96374; 99285-25; G0378

== ENCOUNTER 2019-03-25 01:54 | Emergency (ER) | payer MEDICAID ==
[2019-03-25] MEDS: DIPHTH/TET/ACEL PERTUSS (ADULT) 0.5 ML VIAL IM* (03:42)
== END 2019-03-25 05:29 | disposition home or self-care (01) ==
LOC: FTE 01:54
DX: S01.01XA Laceration without foreign body of scalp, initial encounter (principal); Y09 Assault by unspecified means; Z23 Encounter for immunization; Z79.82 Long term (current) use of aspirin; Z79.84 Long term (current) use of oral hypoglycemic drugs
CPT/HCPCS: 12002; 70450; 90471; 90715; 99284-25

== ENCOUNTER 2019-05-11 02:45 | Emergency (ER) | payer MEDICAID ==
[2019-05-11 03:52] LABS: ADD MAN DIFF? NO
[2019-05-11] MEDS: ACETAMINOPHEN 500 MG TAB PO (03:53)
[2019-05-11] MEDS: SOD CHLORIDE 0.9% 1,000 ML IV (03:54)
[2019-05-11] MEDS: ONDANSETRON 4 MG INJ IV (03:54)
[2019-05-11] MEDS: KETOROLAC 30 MG INJ IV (03:54)
[2019-05-11 04:43] LABS: BASOPHILS % 0.5 % (0.0-2.0); EOSINOPHILS # 0.1 10^3/ul (0.0-0.5); HEMATOCRIT 37.6 % (42.0-52.0); HEMOGLOBIN 12.4 g/dl (14.0-18.0); LYMPHOCYTES # 2.1 10^3/ul (0.8-2.9); MEAN CORPUSCULAR HEMOGLOBIN 27.4 pg (29.0-33.0); MEAN PLATELET VOLUME 12.6 fl (7.4-10.4); MONOCYTE # 0.6 10^3/ul (0.3-0.9); MONOCYTES % 7.1 % (0.0-11.0); NEUTROPHIL # 5.5 10^3/ul (1.6-7.5); NEUTROPHILS % 66.2 % (39.0-77.0); PLATELET COUNT 146 10^3/UL (140-415); RED BLOOD COUNT 4.53 10^6/ul (4.70-6.10); RED CELL DISTRIBUTION WIDTH 13.6 % (11.5-14.5)
[2019-05-11 04:43] LABS: WHITE BLOOD COUNT 8.4 10^3/ul (4.8-10.8)
[2019-05-11 05:06] LABS: INR 1.08; PROTIME 14.1 Sec (11.9-14.9); PT RATIO 1.1
[2019-05-11 05:07] LABS: PARTIAL THROMBOPLASTIN TIME 28.4 Sec (23.0-35.0)
[2019-05-11 05:13] LABS: ANION GAP 8 (5-13); BLOOD UREA NITROGEN 15 mg/dl (7-20); CALCIUM 9.3 mg/dl (8.4-10.2); CARBON DIOXIDE 25 mmol/L (21-31); CHLORIDE 108 mmol/L (97-110); CREATININE 1.01 mg/dl (0.61-1.24); Estimated GFR > 60 mL/min (>60); GLUCOSE 129 mg/dl (70-220); POTASSIUM 3.8 mmol/L (3.5-5.1); SODIUM 141 mmol/L (135-144)
== END 2019-05-11 05:44 | disposition home or self-care (01) ==
LOC: FTE 02:45
DX: R51 Headache (principal); E11.9 Type 2 diabetes mellitus without complications; Z79.82 Long term (current) use of aspirin; Z79.84 Long term (current) use of oral hypoglycemic drugs
CPT/HCPCS: 36415; 70450; 80048; 85025; 85610; 85730; 96374; 96375; 99285-25